=== PATIENT | male | born 1950 | race Caucasian/White ===

== ENCOUNTER 2018-06-28 01:06 | Emergency (ER) | payer MEDICARE, BC ==
[2018-06-28] MEDS ORDERED: Ketorolac 30 MG/ML SDV IM ONE (02:12)
[2018-06-28] MEDS ORDERED: Cyclobenzaprine 10 MG Tab PO ONE (02:12)
--- NOTE | 2018-06-28 02:15 | EDM.PDOC ---
ED HPI GENERAL MEDICAL PROBLEM - General Chief Complaint: Neck Problem Stated Complaint: NECK PAIN Time Seen by Provider: 06/28/18 02:08 Source of Information: Reports: Patient, RN Notes Reviewed History Limitations: Reports: No Limitations - History of Present Illness INITIAL COMMENTS - FREE TEXT/NARRATIVE: 67-year-old gentleman presents emergency department day complaint of neck pain, he has been dealing with his neck issue for some time following trauma he has been doing massage therapy tonight he was stretching in her to pop and now sudden onset of pain he has no difficulty moving his neck from [id number] or up and down it is just painful he denies any lightheadedness. He has not tried anything for the pain. Treatments THERAPIST ASST: Reports: Other (see below) Other Treatments THERAPIST ASST: none Neck Pain Score (Numeric/FACES): 8 - Related Data Allergies Allergy/AdvReac Type Severity Reaction Status Date / Time azithromycin Allergy Shortness Verified 06/28/18 02:11 of Breath Home Meds: Home Meds Lisinopril 20 mg PO DAILY 06/28/18 [History] Simvastatin [Zocor] 40 mg PO BEDTIME 06/28/18 [History] Past Medical History Cardiovascular History: Reports: High Cholesterol, Hypertension Social & Family History - Tobacco Use Smoking Status *Q: Never Smoker ED ROS GENERAL - Review of Systems Review Of Systems: See Below Constitutional: Reports: No Symptoms Respiratory: Reports: No Symptoms Cardiovascular: Reports: No Symptoms Musculoskeletal: Reports: Neck Pain Neurological: Reports: No Symptoms ED EXAM, UPPER BACK/NECK PAIN - Physical Exam Exam: See Below Exam Limited By: No Limitations General Appearance: Alert, WD/WN, No Apparent Distress Neck Exam: Full Range of Motion, Normal Alignment, Normal Inspection, Muscle Spasm, Paraspinous Muscle Tender, Stiff Neck, Tenderness, Tender Lateral. No: Spinous Processes Tender, Tender Midline Nexus Criteria: No: Posterior, Midline Cervical Tenderness, Evidence of Intoxication, Altered Level of Consciousness, Focal Neurological Deficit, Painful Distraction Injuries Cardiovascular/Respiratory: No Respiratory Distress Course - Vital Signs Last Recorded V/S: Last Vital Signs Temp 97.2 F 06/28/18 02:23 Pulse 60 06/28/18 02:23 Resp 12 06/28/18 02:23 BP 118/62 06/28/18 02:23 Pulse Ox 98 06/28/18 02:23 - Orders/Labs/Meds Meds: Medications Discontinued Medications Generic Name Dose Route Start Last Admin Trade Name Tobi PRN Reason Stop Dose Admin Cyclobenzaprine HCl 10 mg 06/28/18 02:12 06/28/18 02:19 Flexeril PO 06/28/18 02:13 10 mg ONETIME ONE Administration Ketorolac Tromethamine 30 mg 06/28/18 02:12 06/28/18 02:19 Toradol IM 06/28/18 02:13 30 mg ONETIME ONE Administration Departure - Departure Time of Disposition: 02:54 Disposition: Home, Self-Care 01 Condition: Fair Clinical Impression: Muscle spasms of neck - Discharge Information Referrals: Josiah Briscoe MD [Primary Care Provider] - Forms: ED Department Discharge Additional Instructions: Take ibuprofen as needed for pain control, use Flexeril as needed for muscle spasm, Please followup with your primary care provider in 3-5 days if not better, please call return to the emergency department with worsening of symptoms. - Assessment/Plan Plan: Assessment Acuity = acute Site and laterality = neck pain Etiology = muscle spasm Manifestations = none Location of injury = Home Lab values = none Plan Had good improvement with Flexeril and Toradol plan is discharge home with Flexeril 10 mg by mouth 3 times a day when necessary total 15 follow-up primary care 3-5 days if no improvement This note was dictated using [employer] voice recognition software please call with any questions on syntax or grammar.
== END 2018-06-28 03:10 | disposition home or self-care (01) ==
LOC: JP.ED 01:06
DX: M62.830 Muscle spasm of back (principal); E78.00 Pure hypercholesterolemia, unspecified; I10 Essential (primary) hypertension; Z88.1 Allergy status to other antibiotic agents; Z79.899 Other long term (current) drug therapy
CPT/HCPCS: 96372; 99283; A9270; J1885